=== PATIENT | male | born 1980 | race African-American/Black ===

== ENCOUNTER 2018-09-03 14:57 | Inpatient (IN) ==
[2018-09-03] MEDS ORDERED: Aspirin 325 MG Tablet PO ONE (15:27)
--- NOTE | 2018-09-03 15:41 | XR ---
EXAM DATE: 09/03/2018 3:39 PM EDT AGE/SEX: 38 years / Male INDICATIONS: Chest pain. CLINICAL DATA: This is the patient's initial encounter. Patient reports that signs and symptoms have been present for 1 day and indicates a pain score of 5/10. MEDICAL/SURGICAL HISTORY: Myocardial infarction. None. COMPARISON: No prior exams available for comparison. FINDINGS: A single AP view of the chest demonstrates the lungs to be symmetrically aerated without evidence of mass, infiltrate or effusion. The cardiomediastinal contours are unremarkable. Osseous structures a re intact. CONCLUSION: Negative for an acute process Electronically signed by: Luis Chávez MD 09/03/2018 3:40 PM EDT
[2018-09-03 15:42] LABS: Baso # (Auto) 0.1 th/mm3 (0.0-0.2); Eos # (Auto) 0.2 th/mm3 (0.0-0.4); Eos % (Auto) 3.8 % (0.0-4.0); Hematocrit 46.8 % (39.0-51.0); Hemoglobin 16.5 gm/dL (13.0-17.0); Lymph # (Auto) 1.9 th/mm3 (1.0-4.8); Lymph % (Auto) 30.2 % (9.0-44.0); Mean Corpuscular HGB Conc 35.2 % (32.0-36.0); Mean Corpuscular Hemoglobin 35.3 pg (27.0-34.0); Mean Corpuscular Volume 100.4 fL (80.0-100.0); Mean Platelet Volume 7.9 fL (7.0-11.0); Mono # (Auto) 0.7 th/mm3 (0.0-0.9); Mono % (Auto) 11.4 % (0.0-8.0); Neut # (Auto) 3.4 th/mm3 (1.8-7.7); Neut % (Auto) 53.6 % (16.0-70.0); Platelet Count 256 th/mm3 (150-450); Red Blood Count 4.66 mil/mm3 (4.50-5.90); Red Cell Distribution Width 13.7 % (11.6-17.2); White Blood Count 6.3 th/mm3 (4.0-11.0)
[2018-09-03] MEDS ORDERED: Heparin 10,000 UNITS/10 ML Vial (for IV use) IV.PUSH STA (15:47)
[2018-09-03] MEDS ORDERED: Heparin Drip 25,000 UNIT/250 ML BAG IV.CONT PRN (15:47)
[2018-09-03 15:55] LABS: Activated Partial Thrombo Time 27.8 sec (24.3-30.1); INR 1.1 Ratio; Prothrombin Time 10.7 sec (9.8-11.6)
--- NOTE | 2018-09-03 15:59 | ED ---
HPI General Chief Complaint: Chest Pain Stated Complaint: Dizzines,patient states chest pain Time Seen by Provider: 09/03/18 15:27 History of Present Illness HPI narrative: Patient states that [place] is visiting [place] arrived last night from [place] and developed chest pain last night when some of his friends got arrested. Pain started at 11:00. Pain described as being sternal, radiating to left side, intermittent, 15-20 minutes in duration, aggravated by thinking about his current situation, unknown alleviating factors. States that the same type of pain in the past and was related to drug and alcohol use. Also advises that he had a stent placed in his heart approximately 1-1/2 years ago at [facility]. He is reporting subjective fever and chills, sweating, shortness of breath, upper back pain the base of his neck, but denies lower extremity edema. Patient denies active bleeding, bleeding diathesis, recent trauma, recent invasive procedure, intracranial hemorrhage, intracranial or spinal tumor, severe uncontrolled hypertension, neuraxial anesthesia. Related Data Home Medications Medication Instructions Recorded Confirmed No Known Home Medications 09/03/18 09/03/18 Allergies Allergy/AdvReac Type Severity Reaction Status Date / Time No Known Allergies Allergy Verified 09/03/18 15:09 Review of Systems ROS: all other systems reviewed are negative [facility] Social History Social History Substance History: No History of Abuse Smoking Status: Heavy tobacco smoker Tobacco Type: Cigarettes How Often Do You Have a Drink Containing Alcohol: 2 to 3 times a week Recent Travel in [facility] within the Last 8 Weeks: No Recent Out of Country Travel within the Last 8 Weeks: No Immunization History Tetanus Immunization: Unsure Exam Narrative Exam Narrative: GENERAL: No acute distress. SKIN: Focused skin assessment warm/dry. HEAD: Atraumatic. Normocephalic. EYES: Pupils equal and round. No scleral icterus. No injection or drainage. ENT: No nasal bleeding or discharge. Mucous membranes pink and moist. NECK: Trachea midline. No JVD. CARDIOVASCULAR: Regular rate and rhythm. No murmur appreciated. RESPIRATORY: No accessory muscle use. Clear to auscultation. Breath sounds equal bilaterally. GASTROINTESTINAL: Abdomen soft, non-tender, nondistended. Hepatic and splenic margins not palpable. MUSCULOSKELETAL: No obvious deformities. No clubbing. No cyanosis. No edema. NEUROLOGICAL: Awake and alert. No obvious cranial nerve deficits. Motor grossly within normal limits. Normal speech. PSYCHIATRIC: Appropriate mood and affect; insight and judgment normal. Course Initial Documented Vital Signs Temperature 97.8 F 09/03/18 15:04 Pulse Rate 82 09/03/18 15:04 Respiratory Rate 16 09/03/18 15:04 Blood Pressure 122/60 09/03/18 15:04 Pulse Oximetry 96 09/03/18 15:04 Last Documented Vital Signs Temperature 98.2 F 09/03/18 18:33 Pulse Rate 61 09/03/18 18:33 Respiratory Rate 18 09/03/18 18:33 Blood Pressure 112/73 09/03/18 18:33 Pulse Oximetry 100 09/03/18 18:33 Medical Decision Making MDM Narrative Medical decision making narrative: Patient presents to the emergency department complaining of left-sided chest pain. Patient placed on personnel monitor, continuous pulse ox, and IV access obtained. Chest x-ray, EKG, aspirin 325 mg p.o., 1 nitroglycerin sublingual 0.4 mg ordered. Chest x-ray showed no acute process, EKG shows NSR, no ST elevation or depression, and no arrhythmias. No significant T-wave inversions. Without an old for comparison showed ST elevation in V3 and V4 and V5 without reciprocal changes. Dr Jaeger, STEMI attending was consulted at 1539 and sent a picture of ECG, he advised that it looks like early re-pole changes but difficult to determine secondary to no old EKG. Also stated that there were no reciprocal changes less likely STEMI, but advised to repeat the EKG in 10 minutes and start aspirin and heparin. Repeat ECG done and sent to Dr Jaeger. He stated difficult to call as STEMI but bc patient has a history and there's no old ECG and he's fairly young, call STEMI alert. Patient transported to [address]. Heparin bolused and heparin gtt started in ER. Urine positive for cocaine and cannaboids, chemistry and troponin pending at time of transport to [address]. Medical Screen Exam Complete: Yes Emergency Medical Condition: Yes Lab Data Result diagrams: 09/03/18 15:32 09/03/18 15:32 Lab Results 09/03/18 09/03/18 09/03/18 Range/Units 15:32 15:32 15:32 WBC 6.3 (4.0-11.0) th/mm3 RBC 4.66 (4.50-5.90) mil/mm3 Hgb 16.5 (13.0-17.0) gm/dL POC Hgb (Calc) (13.0-17.0) g/dL Hct 46.8 (39.0-51.0) % POC Hct (39-51.0) % MCV 100.4 H (80.0-100.0) fL MCH 35.3 H (27.0-34.0) pg MCHC 35.2 (32.0-36.0) % RDW 13.7 (11.6-17.2) % Plt Count 256 (150-450) th/mm3 MPV 7.9 (7.0-11.0) fL Neut % (Auto) 53.6 (16.0-70.0) % Lymph % (Auto) 30.2 (9.0-44.0) % [place] % (Auto) 11.4 H (0.0-8.0) % Eos % (Auto) 3.8 (0.0-4.0) % Baso % (Auto) 1.0 (0.0-2.0) % Neut # (Auto) 3.4 (1.8-7.7) th/mm3 Lymph # (Auto) 1.9 (1.0-4.8) th/mm3 [place] # (Auto) 0.7 (0.0-0.9) th/mm3 Eos # (Auto) 0.2 (0.0-0.4) th/mm3 Baso # (Auto) 0.1 (0.0-0.2) th/mm3 WBC Differential . Differential Comment Auto diff final PT Cancelled INR Cancelled APTT (24.3-30.1) sec POC Sodium (137-144) mmol/L Sodium 138 (136-145) meq/L POC Potassium (3.6-5.0) mmol/L Potassium 4.3 (3.5-5.1) meq/L POC Chloride (102-111) mmol/L Chloride 105 (98-107) meq/L Carbon Dioxide 26.2 (21.0-32.0) meq/L Anion Gap 7 (5-15) meq/L POC BUN (5-21) mg/dL BUN 17 (7-18) mg/dL Creatinine 1.34 H (0.60-1.30) mg/dL POC Creatinine (0.6-1.3) mg/dL Estimated GFR 73 L (>89) mL/min POC Glucose (68-110) mg/dL Random Glucose 94 (74-106) mg/dL Calcium 8.9 (8.5-10.1) mg/dL Magnesium (1.5-2.5) mg/dL Total Bilirubin 0.9 (0.2-1.0) mg/dL AST 19 (15-37) U/L ALT 18 (12-78) U/L Alkaline Phosphatase 69 (45-117) U/L Total Creatine Kinase 313 H (39-308) U/L CK-MB (CK-2) 1.8 (0.5-3.6) ng/mL CK-MB (CK-2) % 0.6 (0.0-4.0) % Troponin I Less than 0.02 L (0.02-0.05) ng/mL B-Natriuretic Peptide (0-100) pg/mL Total Protein 7.6 (6.4-8.2) g/dL Albumin 3.6 (3.4-5.0) g/dL Urine Color (Yellw/Straw) Urine Clarity (Clear) Urine pH (5.0-8.5) Ur Specific [place] (1.002-1.035) Urine Protein (Neg-Trace) mg/dL Urine Glucose (UA) (Negative) mg/dL Urine Ketones (Negative) mg/dL Urine Occult Blood (Negative) Urine Nitrate (Negative) Urine Bilirubin (Negative) Urine Urobilinogen (Less than 2) mg/dL Ur Leukocyte Esterase (Negative) Urine RBC (0-3) /hpf Urine WBC (0-5) /hpf Ur Squamous Epith Cells (0-5) /hpf Urine Mucus (Occasional) /lpf Micro UA Comment Ur Microscopic Review Urine Culture Comments Urine Opiates Screen (Neg) Ur Barbiturates Screen (Neg) Ur Amphetamines Screen (Neg) U Benzodiazepines Scrn (Neg) Urine Cocaine Screen (Neg) U Cannabinoids Screen (Neg) 09/03/18 09/03/18 09/03/18 Range/Units 15:32 15:32 15:32 WBC (4.0-11.0) th/mm3 RBC (4.50-5.90) mil/mm3 Hgb (13.0-17.0) gm/dL POC Hgb (Calc) (13.0-17.0) g/dL Hct (39.0-51.0) % POC Hct (39-51.0) % MCV (80.0-100.0) fL MCH (27.0-34.0) pg MCHC (32.0-36.0) % RDW (11.6-17.2) % Plt Count (150-450) th/mm3 MPV (7.0-11.0) fL Neut % (Auto) (16.0-70.0) % Lymph % (Auto) (9.0-44.0) % [place] % (Auto) (0.0-8.0) % Eos % (Auto) (0.0-4.0) % Baso % (Auto) (0.0-2.0) % Neut # (Auto) (1.8-7.7) th/mm3 Lymph # (Auto) (1.0-4.8) th/mm3 [place] # (Auto) (0.0-0.9) th/mm3 Eos # (Auto) (0.0-0.4) th/mm3 Baso # (Auto) (0.0-0.2) th/mm3 WBC Differential Differential Comment PT 10.7 INR 1.1 APTT 27.8 (24.3-30.1) sec POC Sodium (137-144) mmol/L Sodium (136-145) meq/L POC Potassium (3.6-5.0) mmol/L Potassium (3.5-5.1) meq/L POC Chloride (102-111) mmol/L Chloride (98-107) meq/L Carbon Dioxide (21.0-32.0) meq/L Anion Gap (5-15) meq/L POC BUN (5-21) mg/dL BUN (7-18) mg/dL Creatinine (0.60-1.30) mg/dL POC Creatinine (0.6-1.3) mg/dL Estimated GFR (>89) mL/min POC Glucose (68-110) mg/dL Random Glucose (74-106) mg/dL Calcium (8.5-10.1) mg/dL Magnesium 2.4 (1.5-2.5) mg/dL Total Bilirubin (0.2-1.0) mg/dL AST (15-37) U/L ALT (12-78) U/L Alkaline Phosphatase (45-117) U/L Total Creatine Kinase (39-308) U/L CK-MB (CK-2) (0.5-3.6) ng/mL CK-MB (CK-2) % (0.0-4.0) % Troponin I (0.02-0.05) ng/mL B-Natriuretic Peptide 2 (0-100) pg/mL Total Protein (6.4-8.2) g/dL Albumin (3.4-5.0) g/dL Urine Color (Yellw/Straw) Urine Clarity (Clear) Urine pH (5.0-8.5) Ur Specific [place] (1.002-1.035) Urine Protein (Neg-Trace) mg/dL Urine Glucose (UA) (Negative) mg/dL Urine Ketones (Negative) mg/dL Urine Occult Blood (Negative) Urine Nitrate (Negative) Urine Bilirubin (Negative) Urine Urobilinogen (Less than 2) mg/dL Ur Leukocyte Esterase (Negative) Urine RBC (0-3) /hpf Urine WBC (0-5) /hpf Ur Squamous Epith Cells (0-5) /hpf Urine Mucus (Occasional) /lpf Micro UA Comment Ur Microscopic Review Urine Culture Comments Urine Opiates Screen (Neg) Ur Barbiturates Screen (Neg) Ur Amphetamines Screen (Neg) U Benzodiazepines Scrn (Neg) Urine Cocaine Screen (Neg) U Cannabinoids Screen (Neg) 09/03/18 09/03/18 09/03/18 Range/Units 15:45 15:45 16:38 WBC (4.0-11.0) th/mm3 RBC (4.50-5.90) mil/mm3 Hgb (13.0-17.0) gm/dL POC Hgb (Calc) 15.0 (13.0-17.0) g/dL Hct (39.0-51.0) % POC Hct 44.0 (39-51.0) % MCV (80.0-100.0) fL MCH (27.0-34.0) pg MCHC (32.0-36.0) % RDW (11.6-17.2) % Plt Count (150-450) th/mm3 MPV (7.0-11.0) fL Neut % (Auto) (16.0-70.0) % Lymph % (Auto) (9.0-44.0) % [place] % (Auto) (0.0-8.0) % Eos % (Auto) (0.0-4.0) % Baso % (Auto) (0.0-2.0) % Neut # (Auto) (1.8-7.7) th/mm3 Lymph # (Auto) (1.0-4.8) th/mm3 [place] # (Auto) (0.0-0.9) th/mm3 Eos # (Auto) (0.0-0.4) th/mm3 Baso # (Auto) (0.0-0.2) th/mm3 WBC Differential Differential Comment PT INR APTT (24.3-30.1) sec POC Sodium 139 (137-144) mmol/L Sodium (136-145) meq/L POC Potassium 4.1 (3.6-5.0) mmol/L Potassium (3.5-5.1) meq/L POC Chloride 101 L (102-111) mmol/L Chloride (98-107) meq/L Carbon Dioxide (21.0-32.0) meq/L Anion Gap (5-15) meq/L POC BUN 16 (5-21) mg/dL BUN (7-18) mg/dL Creatinine (0.60-1.30) mg/dL POC Creatinine 1.3 (0.6-1.3) mg/dL Estimated GFR (>89) mL/min POC Glucose 78 (68-110) mg/dL Random Glucose (74-106) mg/dL Calcium (8.5-10.1) mg/dL Magnesium (1.5-2.5) mg/dL Total Bilirubin (0.2-1.0) mg/dL AST (15-37) U/L ALT (12-78) U/L Alkaline Phosphatase (45-117) U/L Total Creatine Kinase (39-308) U/L CK-MB (CK-2) (0.5-3.6) ng/mL CK-MB (CK-2) % (0.0-4.0) % Troponin I (0.02-0.05) ng/mL B-Natriuretic Peptide (0-100) pg/mL Total Protein (6.4-8.2) g/dL Albumin (3.4-5.0) g/dL Urine Color Yellow (Yellw/Straw) Urine Clarity Clear (Clear) Urine pH 5.0 (5.0-8.5) Ur Specific [place] 1.023 (1.002-1.035) Urine Protein Negative (Neg-Trace) mg/dL Urine Glucose (UA) Negative (Negative) mg/dL Urine Ketones Negative (Negative) mg/dL Urine Occult Blood Negative (Negative) Urine Nitrate Negative (Negative) Urine Bilirubin Negative (Negative) Urine Urobilinogen 2.0 H (Less than 2) mg/dL Ur Leukocyte Esterase Negative (Negative) Urine RBC 4 H (0-3) /hpf Urine WBC 2 (0-5) /hpf Ur Squamous Epith Cells <1 (0-5) /hpf Urine Mucus Few H (Occasional) /lpf Micro UA Comment Culture not ind Ur Microscopic Review Not Reportable Urine Culture Comments Culture not ind Urine Opiates Screen Neg (Neg) Ur Barbiturates Screen Neg (Neg) Ur Amphetamines Screen Neg (Neg) U Benzodiazepines Scrn Neg (Neg) Urine Cocaine Screen Pos H (Neg) U Cannabinoids Screen Pos H (Neg) Imaging Data Radiologist's impression: Chest X-Ray 09/03/18 15:27 CONCLUSION: Negative for an acute process ECG Data Attestation: I personally reviewed and interpreted this ECG as follows: (Sinus rhythm, rate 76, normal axis, normal intervals, QTC 380, ST elevation in V3 through V5 possible early re-polarization changes) Discharge Plan Discharge Disposition Patient Disposition: 30 Still Patient Discharge Condition Condition: Stable Discharge Order Discharge Orders: Cardiology Clear for Discharge (Routine); Ordered 09/03/18 Ordered By: Imtiaz Jaeger Discharge Details Diagnosis: Chest pain Physicians Team ED Provider: Rubia Hallman Primary Care Provider: Primary Care Tiffany Macias Attending Provider: Imtiaz Jaeger Other Providers: Luis Theodore Discharge Interventions Interventions: ED Discharge Assessment Last Done: 09/03/18 16:58 Status ED Status: Left Department Discharge Information Discharge Date/Time: 09/03/18 19:08
[2018-09-03 16:23] LABS: Bilirubin,Urine Negative (Negative); Clarity,Urine Clear (Clear); Color,Urine Yellow (Yellw/Straw); Glucose,Urine (UA) Negative (Negative); Leukocyte Esterase,Urine Negative (Negative); Mucus,Urine Few /lpf (Occasional); Nitrite,Urine Negative (Negative); Specific Gravity,Urine 1.023 (1.002-1.035); Squamous Epithelial Cell,Urine <1 /hpf (0-5)
[2018-09-03 16:29] LABS: Amphetamine Screen,Urine Neg (Neg); Barbiturate Screen,Urine Neg (Neg); Cannabinoid Screen,Urine Pos (Neg); Cocaine Screen,Urine Pos (Neg)
[2018-09-03] MEDS ORDERED: Heparin 10,000 UNITS/10 ML Vial (for IV use) ONE ×2 (16:29→16:41)
[2018-09-03 16:32] LABS: Alkaline Phosphatase 69 U/L (45-117); Creatine Kinase 313 U/L (39-308); Total Protein 7.6 g/dL (6.4-8.2)
[2018-09-03 16:32] LABS: Opiate Screen,Urine Neg (Neg)
[2018-09-03] MEDS ORDERED: fentaNYL Citrate Inj 100 MCG/2 ML Ampul ONE (16:40)
[2018-09-03] MEDS ORDERED: Heparin/NS PF Inj 1,500 ML ONE (16:40)
[2018-09-03 16:44] LABS: CKMB Percent 0.6 % (0.0-4.0); Creatine Kinase MB 1.8 ng/mL (0.5-3.6)
[2018-09-03 17:01] LABS: Alanine Aminotransferase 18 U/L (12-78); Albumin 3.6 g/dL (3.4-5.0); Anion Gap 7 meq/L (5-15); Aspartate Aminotransferase 19 U/L (15-37); Blood Urea Nitrogen 17 mg/dL (7-18); Calcium 8.9 mg/dL (8.5-10.1); Carbon Dioxide 26.2 meq/L (21.0-32.0); Chloride 105 meq/L (98-107); Glomerular Filtration Rate 73 mL/min (>89); Glucose,Random 94 mg/dL (74-106); Potassium 4.3 meq/L (3.5-5.1); Sodium 138 meq/L (136-145)
[2018-09-03] MEDS ORDERED: Sod Chloride 0.9% Inj 1,000 ML IV.CONT SCH (17:30)
--- NOTE | 2018-09-03 17:51 | CATHPROC ---
eTipping HIS Report Study Information Study Number Admission Scheduled Start Study Start [id number] Sep 03 2018 2:57PM 09/03/2018 Sep 03 2018 4:41PM [place] Service Cardiac Catheterization Admit Source Facility Department Emergency department [facility] Physician and Clinical Staff Initial Imtiaz Pozo [employer] Officer Malik Nelson RN [employer] Juliane Cruz,HEMALATHA Recorder Nisha Andre,RT(R) (BS) Recorder Shama Manuel,RT(R) Scrub Giovanna Jalloh ,RT(R) Procedures Performed Procedure Location (Site) Vessel Name Angiogram LV LV Ventricle Coronary Angiograms LCA Left Coronary Coronary Angiograms RCA Right Coronary PTCA ADD ON'S Wire insertion Fem Art (right) Femoral Art Equipment Time Subsystems Engineer Description Size Mfg Part Number Used/Scraped TRANSDUCER, ALCON [id number] 16:51 [employer] LUNDBERG * Used W/HEVERCK *[id number] 17:08 [employer] MEDICAL VASCADE, FR6 CLOSURE SYSTEM FR 6\\7 Used *[id number] *[id number] *[id number] *[id number] 16:51 [employer] BLANKET,WARM AIR CCL * Used *[id number] 16:51 [employer] PACK, CCL CUSTOM * Used *[id number] 16:51 [employer] PACER PEN, SKIN DUAL W/ RULER * Used *[id number] 17:03 [employer] 30 DAYSI INDEFLATOR Used *[id number] 16:51 [employer] SHEATH, FR6.5 PRELUDE 11CM FR 6.5 038ACT Used *[id number] 16:51 [employer] WIRE, 3MMJ .035 180CM 180CM Used *[id number] 16:51 [employer] MANIFOLD, 4 PORT * Used *[id number] 17:05 [employer] TUBING, HIGH PRESSURE 48" 48" Used *[id number] 16:51 [employer] OMNIPAQUE, 350 MG, 150ML 150ML [id number] Used History: Current Medications Medication Dosage/Unit Route Frequency Last Date/Time Taken ASA HEPARIN NTG SL History: Allergies Allergy Reaction No Known Allergies History: Risk Factors Family History of Hypertension Dyslipidemia Previous MT Previous Heart Failure Premature CAD No No No Yes No Prior Valve Prior PCI Prior PCIDate Prior CABG Surgery No Yes 08/04/2017 No Cerebrovascular Peripheral Artery Chronic Lung On Dialysis Diabetes Disease Disease Disease No No No No No History: Symptoms/Diagnosis Selection Items Chest pain History: Stress Tests Stress or Imaging Studies Performed No History: Other Current Smoker Method Packs a Day Years Used Pack Years Yes Cigarettes 2 8 16 Labs Hgb (g/dl) Hct (%) WBC (l/cumm) Platelets (thousands) 11.60-17.00 35.00-51.00 4.00-11.00 150.00-450.00 16.5 46.8 6.3 256 Glucose (mg/dl) BUN (mg/dl) Creatinine (mg/dl) BUN:Creatinine (1:x) 74.00-106.00 7.00-18.00 0.50-1.30 10.00-20.00 78 17 1.3 13.1 Na (meq/l) K (meq/l) Ca (mg/dl) 136.00-145.00 3.50-5.10 8.50-10.10 139 4.1 8.9 INR (PTT:PT) 0.90-1.10 1.1 Troponin I (ng/ml) CPK-MB (ng/ML) 0.02-0.05 0.50-3.60 0.02 Not Drawn Medication Medication Total Dose (Bolus/Oral) Medication Total Dosage/Unit 1% XYLOCAINE 20 mL FENTANYL 50 mcg VERSED 2 mg Medications (Bolus/Oral) Medication Time Given Dosage/Unit Administered By Reason VERSED 09/03/2018 4:54:40 PM 2 mg Juliane Cruz 2 mg VERSED given in lab by Juliane Cruz, RN via Peripheral IV. FENTANYL 09/03/2018 4:55:48 PM 50 mcg Juliane Cruz 50 mcg FENTANYL given in lab by Juliane Cruz, RN via Peripheral IV. 1% XYLOCAINE 09/03/2018 4:56:48 PM 20 mL Imtiaz Jaeger 20 mL 1% XYLOCAINE given in lab by Imtiaz Jaeger in Right Groin via Subcutaneous. Medication (Drip) Medication Time Given Dosage/Unit Concentration/Unit Diluent (ml) Solution HEPARIN DRIP STOPPED 09/03/2018 4:42:13 PM 0 units/hr 0 D5W Patient arrived on 0 units/hr HEPARIN DRIP STOPPED. Pump/Drip Flow = 0 ml/hr using D5W. IV Solutions 09/03/2018 4:42:13 PM 0 mL (IV) 500 NaCl .9 Patient arrived on IV Solutions via Peripheral IV. Pump/Drip Flow = 30 ml/hr using NaCl .9. Final Case Assessment Cardiovascular HR Rhythm NIBP Chest Pain 76 reg 97/55 0 Edema Present Skin color Skin None Normal Warm Circulatory - Right Pulses Dorsalis Pedis Femoral 3 3 Scale (0,1,2,3,4,d) Circulatory - Left Pulses Dorsalis Pedis Femoral 3 3 Scale (0,1,2,3,4,d) Circulatory - Lower Extremities Color Lower Right Color Lower Left Normal Normal Neurological State Oriented to time-place- Alert Moves all extremities person Respiration - General Respiration Rate SpO2 (%) O2 (lpm) (B/min) 12 98 2 Chronological Log Time Study Chronological Log 16:31:56 Emergency Room notified that [facility] is ready. 16:42:01 Patient arrived via Bed. 16:42:01 Patient Name, D.O.B, / Armband Verified By R.N. 16:42:02 Consent signed by the physician and the patient and verified by the [facility] staff. 16:42:02 Pre-op and post- op instructions given; patient acknowledges understanding of instruction s. 16:42:04 Presedation assessment performed by [facility] RN. 16:42:07 Immediate Presedation assesment performed by physician. 16:42:08 Patient has been NPO for More than 6Hrs. 16:42:09 Patient Warmer Placed on the Table. 16:42:10 Disposable Defibrillator Pads Placed On Patient. 16:42:10 Joon Prominences Protected 16:42:11 A # 20 IV was noted in the Antecubital (left). Grade = 0 16:42:12 A # 20 IV was noted in the Antecubital (right). Grade = 0 16:42:13 Patient arrived on IV Solutions via Peripheral IV. Pump/Drip Flow = 30 ml/hr using NaCl .9. 16:42:13 Patient arrived on 0 units/hr HEPARIN DRIP STOPPED. Pump/Drip Flow = 0 ml/hr using D5W. 16:42:14 History and physical on the chart or being dictated. 16:44:10 Bilateral groins prepped with 2% chlorhexidine, and draped after a 3 minute waiting time. Vitals capture started with the following parameters, Patient=Adult, Interval=5 min, Initial Pr dkwtmx=426 mmHg, 16:46:05 Deflation Rate=5 mmHg, Cuff placed on Left Arm 16:46:37 HR=60 bpm, TJEE=172/81 mmhg, VjL7=911.0 %, Resp=11 B/min, Pain=6, Natasha=10, Watts=2 16:49:25 Reference ECG taken 16:51:38 HR=69 bpm, FXEO=445/75 mmhg, TlN9=125.0 %, Resp=27 B/min, Pain=6, Natasha=10, Watts=2 16:52:31 MD arrived 16:53:26 Pressure channel 1 zeroed. 16:54:40 2 mg VERSED given in lab by Juliane Cruz, HEMALATHA via Peripheral IV. 16:55:48 50 mcg FENTANYL given in lab by Juliane Cruz, HEMALATHA via Peripheral IV. Time Out. Correct patient, correct procedure, correct physician, labs, allergies, and equipment verified with cath lab radiology technician 16:56:31 team present. Fire risk assesment completed (see hard stop sheet for coding). Time Out Conc urred by MD and individual staff in procedure. 16:56:39 Case Start 16:56:40 HR=72 bpm, IGIX=967/73 mmhg, WjL1=120.0 %, Resp=15 B/min, Pain=6, Natasha=10, Watts=2 16:56:48 20 mL 1% XYLOCAINE given in lab by Imtiaz Jaeger in Right Groin via Subcutaneous. 16:57:49 Access site was Right Femoral Artery. 16:57:53 A wire was inserted via Fem Art (right). 16:57:55 A SHEATH, FR6.5 PRELUDE 11CM FR 6.5 was advanced into the Fem Art (right) using the Percuta neous technique. A JL 4.0 INFINITI CATHETER FR 6 was advanced over a wire. OMNIPAQUE, 350 MG, 150ML 150ML was us ed for 16:58:47 injections. Recorded Pressure: Ao, HR=57, Condition=Condition 1 16:59:33 (Aorta) Ao 84/54/68 16:59:45 The LCA was injected and visualized at various angles. OMNIPAQUE, 350 MG, 150ML 150ML used . 17:00:27 Catheter was removed A 3DRC INFINITI CATHETER FR 6 was advanced over a wire. OMNIPAQUE, 350 MG, 150ML 150ML was used for 17:00:48 injections. 17:01:33 The RCA was injected and visualized at various angles. OMNIPAQUE, 350 MG, 150ML 150ML used . 17:01:39 HR=63 bpm, UHZN=713/67 mmhg, SpO2=97.0 %, Resp=15 B/min, Pain=6, Natasha=10, Watts=2 17:02:00 Catheter was removed 17:02:44 contrast and 30 DAYSI INDEFLATOR added. A PIGTAIL STR INFINITI CATHETER FR 6 was advanced over a wire. OMNIPAQUE, 350 MG, 150ML 150ML w as used for 17:03:04 injections. Recorded Pressure: LV, HR=70, Condition=Condition 1 17:04:01 (Left Ventricle) LV 92/-2/5 17:05:11 The LV was injected at 12 cc/sec for a total of 42. OMNIPAQUE, 350 MG, 150ML 150ML used. Recorded Pressure: LV, Ao, HR=74, Condition=Condition 1 17:06:26 (Left Ventricle) LV 81/-2/-7, (Aorta) Ao 81/48/63 17:06:40 HR=75 bpm, NIBP=97/55 mmhg, SpO2=98.0 %, Resp=21 B/min, Pain=6, Natasha=10, Watts=2 17:06:56 Catheter was removed 17:07:04 An injection in the Fem Art (right) was made through the SHEATH, FR6.5 PRELUDE 11CM FR 6.5 . Assessment: Final Case, HR=76 BPM, Rhythm=reg, NIBP=97/55 mmhg, Chest Pain=0, Edema=None, [place] r=Normal, Skin = Warm Right Pulses: Kristopher Ped=3, Femoral=3 Left Pulses: Kristopher Ped=3, Femoral=3 17:07:22 Lower Right Extremities: Color=Normal Lower Left Extremities: Color=Normal Neurological: State=Alert, Ox3, LEWIS Respiration: Resp=12 B/min, SpO2=98 %, O2=2 lpm 17:08:08 Catheter(s) removed without difficulty 17:08:10 VASCADE, FR6 CLOSURE SYSTEM FR 6\\7 placement in the Fem Art (right) 17:09:10 Case End (Physician broke scrub) 17:11:41 HR=77 bpm, ZOLO=243/56 mmhg, SpO2=98.0 %, Resp=23 B/min, Pain=6, Natasha=10, Watts=2 17:16:40 HR=72 bpm, IVEQ=632/58 mmhg, BkF6=801.0 %, Resp=15 B/min, Pain=6, Natasha=10, Watts=2 17:21:43 HR=62 bpm, TTPV=110/60 mmhg, KsZ2=505.0 %, Resp=10 B/min, Pain=6, Natasha=10, Watts=2 17:23:18 failure of closure device-pressure held 17:26:42 HR=60 bpm, FLNM=189/66 mmhg, EtK6=321.0 %, Resp=9 B/min, Pain=6, Natasha=10, Watts=2 17:31:43 NIBP=96/69 mmhg, EgB5=464.0 %, Pain=6, Natasha=10, Watts=2 17:36:42 OQOJ=630/64 mmhg, RcV9=926.0 %, Pain=6, Natasha=10, Watts=2 17:39:27 report given to Ottoniel by Dahlia RN 17:39:58 hemastasis achieved 17:41:43 AWWM=780/69 mmhg, MfV5=959.0 %, Pain=6, Natasha=10, Watts=2 17:46:44 YQIE=909/73 mmhg, SpO2=99.0 %, Pain=6, Natasha=10, Watts=2 End Study - Contrast Media Used In Study Contrast Total Opened (mL) Total Used (mL) Total Wasted (mL) Omnipaque 100 100 0 End Study - Maximum Contrast Load Max Contrast Load (mL) 288.5 End Study - Radiation Exposure Fluoro Time (minutes) 1.3 End Study - Sheaths Sheaths Pulled By Sheath Hold Time (min) Giovanna Jalloh End Study - Patient Disposition Complications Transferred To Critical Care Bed
--- NOTE | 2018-09-03 18:54 | MA ---
cc: Imtiaz Jaeger MD DATE: 09/03/2018 PROCEDURE PERFORMED: Left heart catheterization, selective coronary angiography, left ventriculography. PROCEDURE NOTE: The patient was brought to the cardiac catheterization laboratory in a fasting state after having signed informed consent. The right groin was prepped and draped as per policy and anesthetized with 1% lidocaine. Arterial access was obtained via the right femoral artery and a 6 Finnish sheath placed. Coronary arteriography was performed using a 6 Finnish Alistair left 4.0 and right progressive catheters. Left ventriculography was done using a standard 6 Finnish pigtail. There were no apparent immediate complications. His arteriotomy site was closed with VASCADE with achievement of good hemostasis. HEMODYNAMIC DATA: Left ventricle 81 with an end-diastolic pressure of 10. Aorta 81/48 with a mean of 63. There was no significant transvalvular aortic gradient on pullback of the pigtail catheter. CORONARY ARTERIOGRAPHY: The left main is normal. The left anterior descending gives rise to 2 small to medium size diagonals which are free of disease. No definite disease is seen in the LAD system. The left circumflex is a fairly large vessel giving rise to 3 small to medium size obtuse marginals which are free of disease. No definite disease is seen in the left circumflex system. The right coronary artery is a medium size codominant vessel with no disease. LEFT VENTRICULOGRAPHY: Contrast injection of the left ventricle reveals no segmental wall motion abnormalities. Ejection fraction is estimated at 70%. CONCLUSIONS: 1. Angiographically normal coronary arteries. 2. Codominant system. 3. Normal left ventricular function with an estimated ejection fraction of 70%. MD KENTRELL Martinez/stewart , 05:14 PM , 05:18 PM
--- NOTE | 2018-09-03 19:00 | MB ---
cc: Imtiaz Jaeger MD DATE: 09/03/2018 REASON FOR CONSULTATION: Suspected ST elevation myocardial infarction. HISTORY OF PRESENT ILLNESS: The patient is a 38-year-old male who states he has a history of myocardial infarction and stent placement last year in [place] who was in his usual state of health up until yesterday evening when he began to experience lightheadedness and substernal chest discomfort described as "pressure." The chest discomfort waxed and waned throughout the night. There was no associated shortness of breath, nausea or diaphoresis. He denies syncope, near syncope, palpitations, pedal edema, paroxysmal nocturnal dyspnea. EKG was obtained in the emergency department and was suggestive of an acute ST elevation myocardial infarction, so he was called as a STEMI alert. PAST MEDICAL HISTORY: As above. No other details are currently available. CARDIAC MEDICATIONS AT HOME: None. ALLERGIES: NO KNOWN DRUG ALLERGIES. FAMILY HISTORY: There is no significant family history of early myocardial infarction. SOCIAL HISTORY: The patient smokes about a pack of cigarettes per day. He denies alcohol abuse. REVIEW OF SYSTEMS: As in the history of present illness, otherwise negative or noncontributory. PHYSICAL EXAMINATION: VITAL SIGNS: His blood pressure is 80/48 with a pulse of 69, respirations 15. GENERAL: He is a well-developed, thin, male in no acute distress. NECK: Jugular venous pressure is normal. Carotid pulses are 2+ bilaterally and without bruits. CHEST: Reveals clear lungs mckinney. CARDIAC: He has a regular rhythm and rate without S3, S4, or murmur. ABDOMEN: He has a soft, nontender abdomen. Bowel sounds are present. There is no definite hepatosplenomegaly. EXTREMITIES: Reveals no clubbing, cyanosis or edema. Peripheral pulses are normal throughout. LABORATORY DATA: EKG shows sinus rhythm, anterolateral ST elevation, cannot rule out acute injury pattern. IMPRESSION: Ongoing chest pain, possible acute injury pattern on EKG in this 38-year-old male reportedly with a history of myocardial infarction and coronary stenting last year in [place]. At this time, he continues to have ongoing waxing and waning chest discomfort as well as EKG changes. Unfortunately, he has taken no cardiac medications in the last few months. There is no old EKG for comparison. Because of the suspected acute coronary syndrome, history of coronary artery disease, EKG changes, he has been recommended emergency cardiac catheterization with possible percutaneous coronary intervention. RECOMMENDATIONS: Cardiac catheterization as soon as possible. MD KENTRELL Martinez/zohreh , 05:17 PM , 05:24 PM [email or web address]
[2018-09-03] MEDS: Morphine Inj 4 MG/ML Vial IV.PUSH PRN (21:22)
[2018-09-04 00:48] VITALS: BP 101/59; PULSE 68; RESP 16; TEMP 98.1; O2SAT 98
[2018-09-04] MEDS: Morphine Inj 4 MG/ML Vial IV.PUSH PRN (01:36)
[2018-09-04] MEDS ORDERED: Iohexol 350 MG/ML 100 ML Vial (for Cath Lab) IVCONTRAST ONE (02:07)
--- NOTE | 2018-09-04 02:27 | P.PNADD ---
Addendum to Inpatient Note Reason for Addendum: Additional Documentation Additional information: notified by nursing staff that the patient left the hospital AMA
--- NOTE | 2018-09-04 14:33 | ECG ---
Date Performed: 09/03/2018 Time Performed: 15:22:10 PTAGE: 38 years EKG: Sinus rhythm POSSIBLE LEFT ATRIAL ENLARGEMENT ST ELEVATION, CONSIDER ANTERIOR INJURY ACUTE AK NO PREVIOUS TRACING DOCTOR: Emre Vasques Interpretating Date/Time 09/04/2018 14:28:04
== END 2018-09-04 02:08 | disposition left against medical advice (07) ==
LOC: NEPC 14:57 → NEDA 18:19 → HCPC 18:26
PROVIDERS: ADMIT Internal Medicine Cardiovascular Disease; ATTEND Internal Medicine Cardiovascular Disease